=== PATIENT | male | born 1985 | race Caucasian/White ===

== ENCOUNTER 2020-10-23 10:43 | Inpatient (IN) | payer OTHER ==
[2020-10-23 12:26] LABS: INR 1.16 (0.83-1.09); PROTHROMBIN TIME (PATIENT) 14.2 SEC (9.7-13.0)
[2020-10-23 12:28] LABS: ACTIVATED PTT 25.9 SECONDS (25.2-36.5)
[2020-10-23 12:29] LABS: BASO % 1.2 % (0-2.0); EOS % 2.9 % (0-4.5); HEMATOCRIT 13.2 % (35.4-49); LYMPH % 23.6 % (8-40); MCH 22.3 pg (25.7-33.7); MCHC 31.7 g/dl (32.0-35.9); MEAN CELL VOLUME 70.5 fl (80-96); MEAN PLT VOLUME 7.8 fl (7.5-11.1); MONO % 8.2 % (3.8-10.2); NEUT % 64.1 % (42.8-82.8); PLATELET COUNT 381 10^3/uL (134-434); RBC 1.87 M/mm3 (4.00-5.60); RDW 25.4 % (11.9-15.9); WHITE BLOOD COUNT 4.5 K/mm3 (4.0-10.0)
[2020-10-23 12:34] LABS: HEMOGLOBIN 4.2 GM/dL (11.7-16.9)
[2020-10-23 12:43] LABS: CHLORIDE 108 mmol/L (98-107); SODIUM 138 mmol/L (136-145)
[2020-10-23 12:45] LABS: CALCIUM 8.6 mg/dL (8.5-10.1)
[2020-10-23 12:46] LABS: ALBUMIN 3.4 g/dl (3.4-5.0); BLOOD UREA NITROGEN 9.9 mg/dL (7-18); CO2 23 mmol/L (21-32); GLUCOSE,RANDOM 119 mg/dL (74-106)
[2020-10-23 12:49] LABS: CREATININE 1.2 mg/dL (0.55-1.3); SGOT/AST 79 U/L (15-37); SGPT/ALT 29 U/L (13-61)
[2020-10-23 12:51] LABS: BILIRUBIN,TOTAL 0.4 mg/dL (0.2-1); TOT PROT 7.2 g/dl (6.4-8.2)
[2020-10-23 12:52] LABS: ALK PHOS 82 U/L (45-117)
[2020-10-23 12:58] LABS: ANION GAP 6 MMOL/L (8-16)
[2020-10-23 13:15] LABS: ANISOCYTOSIS 3+; MACROCYTOSIS 1+; OVALOCYTE 1+; PLATELET ESTIMATE NORMAL
[2020-10-23 13:41] LABS: CALCIUM 8.5 mg/dL (8.5-10.1)
[2020-10-23 13:42] LABS: BLOOD UREA NITROGEN 9.7 mg/dL (7-18)
[2020-10-23 13:45] LABS: CREATININE 1.1 mg/dL (0.55-1.3)
[2020-10-23] MEDS ORDERED: PANTOPRAZOLE SODIUM 40 MG VIAL IVPUSH ONE (16:19)
[2020-10-23] MEDS ORDERED: SODIUM CHLORIDE 0.45% 1,000 ML IV SCH (16:30)
[2020-10-23 18:38] VITALS: BMI 29.0
[2020-10-23 21:45] LABS: HEMATOCRIT 15.3 % (35.4-49); MCH 23.8 pg (25.7-33.7); MCHC 32.5 g/dl (32.0-35.9); MEAN CELL VOLUME 73.2 fl (80-96); MEAN PLT VOLUME 6.8 fl (7.5-11.1); PLATELET COUNT 314 10^3/uL (134-434); RBC 2.09 M/mm3 (4.00-5.60); RDW 23.2 % (11.9-15.9); WHITE BLOOD COUNT 5.6 K/mm3 (4.0-10.0)
[2020-10-23] MEDS ORDERED: PANTOPRAZOLE SODIUM 40 MG VIAL IVPUSH SCH (22:00)
[2020-10-24] MEDS: PANTOPRAZOLE SODIUM 40 MG VIAL IVPUSH SCH ×2 (11:09→21:04)
[2020-10-24] MEDS ORDERED: MIDAZOLAM HCL 2 MG/2 ML SINGLE DOSE VIAL ONE (13:28)
[2020-10-24] MEDS ORDERED: IRON SUCROSE INJECTION 200 MG in SODIUM CHLORIDE 90 ML IVPB ONE (15:00)
[2020-10-24 16:58] LABS: CALCIUM 8.9 mg/dL (8.5-10.1)
[2020-10-24 16:59] LABS: BLOOD UREA NITROGEN 8.3 mg/dL (7-18)
[2020-10-24 17:03] LABS: BASO % 1.9 % (0-2.0); CREATININE 1.1 mg/dL (0.55-1.3); EOS % 3.2 % (0-4.5); HEMATOCRIT 24.7 % (35.4-49); HEMOGLOBIN 8.3 GM/dL (11.7-16.9); LYMPH % 22.4 % (8-40); MCH 25.4 pg (25.7-33.7); MCHC 33.6 g/dl (32.0-35.9); MEAN CELL VOLUME 75.8 fl (80-96); MEAN PLT VOLUME 7.7 fl (7.5-11.1); MONO % 8.1 % (3.8-10.2); NEUT % 64.4 % (42.8-82.8); PLATELET COUNT 366 10^3/uL (134-434); RBC 3.26 M/mm3 (4.00-5.60); RDW 23.6 % (11.9-15.9); WHITE BLOOD COUNT 6.8 K/mm3 (4.0-10.0)
[2020-10-24] MEDS: MELATONIN 5 MG TABLETS PO SCH (21:04)
[2020-10-25 09:35] LABS: BASO % 1.3 % (0-2.0); EOS % 5.1 % (0-4.5); HEMATOCRIT 22.5 % (35.4-49); HEMOGLOBIN 7.5 GM/dL (11.7-16.9); LYMPH % 18.2 % (8-40); MCH 25.6 pg (25.7-33.7); MCHC 33.5 g/dl (32.0-35.9); MEAN CELL VOLUME 76.5 fl (80-96); MEAN PLT VOLUME 7.7 fl (7.5-11.1); MONO % 6.8 % (3.8-10.2); NEUT % 68.6 % (42.8-82.8); PLATELET COUNT 324 10^3/uL (134-434); RBC 2.94 M/mm3 (4.00-5.60); RDW 23.6 % (11.9-15.9); RETICULOCYTES 2.68 % (0.5-1.5); WHITE BLOOD COUNT 6.4 K/mm3 (4.0-10.0)
[2020-10-25] MEDS: PANTOPRAZOLE SODIUM 40 MG VIAL IVPUSH SCH ×2 (09:59→23:09)
[2020-10-25 10:01] LABS: BLOOD UREA NITROGEN 7.2 mg/dL (7-18); CALCIUM 8.5 mg/dL (8.5-10.1)
[2020-10-25 10:04] LABS: CREATININE 1.1 mg/dL (0.55-1.3)
[2020-10-25] MEDS: MELATONIN 5 MG TABLETS PO SCH (23:09)
[2020-10-26 09:32] VITALS: BP 127/76; PULSE 70; TEMP 97.8
[2020-10-26] MEDS: PANTOPRAZOLE SODIUM 40 MG VIAL IVPUSH SCH (09:33)
[2020-10-26 11:17] LABS: HEMATOCRIT 26.9 % (35.4-49); HEMOGLOBIN 8.9 GM/dL (11.7-16.9); MCH 25.8 pg (25.7-33.7); MCHC 33.2 g/dl (32.0-35.9); MEAN CELL VOLUME 77.5 fl (80-96); MEAN PLT VOLUME 7.7 fl (7.5-11.1); PLATELET COUNT 331 10^3/uL (134-434); RBC 3.47 M/mm3 (4.00-5.60); WHITE BLOOD COUNT 6.2 K/mm3 (4.0-10.0)
== END 2020-10-26 11:40 | disposition home or self-care (01) | DRG 241 ==
LOC: JER 10:43 → JERBED 14:16 → J5S 15:50
PROVIDERS: ADMIT Family Medicine; ATTEND Family Medicine
PROC: 30233N1 Transfusion of Nonautologous Red Blood Cells into Peripheral Vein, Percutaneous Approach (ICD-10-PCS; principal; 2020-10-23)
DX: K25.4 Chronic or unspecified gastric ulcer with hemorrhage (principal); E87.5 Hyperkalemia; K25.9 Gastric ulcer, unspecified as acute or chronic, without hemorrhage or perforation; K26.9 Duodenal ulcer, unspecified as acute or chronic, without hemorrhage or perforation; Z79.1 Long term (current) use of non-steroidal anti-inflammatories (NSAID); D62 Acute posthemorrhagic anemia
CPT/HCPCS: 36415; 36430; 71045-TC-FY; 80048; 80053; 82272; 83540; 83550; 84443; 84484; 85025; 85027; 85045; 85610; 85730; 86850; 86900; 86901; 86922; 88305-TC; 93005; 93010; 99291; C9803; J1756; P9058; U0003; U0005

== ENCOUNTER 2022-11-06 10:14 | Emergency (ER) | payer BC ==
[2022-11-06 10:32] VITALS: BP 153/88; PULSE 72; RESP 18; TEMP 97.3; BMI 33.2
[2022-11-06 12:10] LABS: BASO % 0.7 % (0-2.0); EOS % 2.8 % (0-4.5); HEMATOCRIT 47.3 % (35.4-49); HEMOGLOBIN 16.3 GM/dL (11.7-16.9); LYMPH % 28.4 % (8-40); MCH 28.9 pg (25.7-33.7); MCHC 34.4 g/dl (32.0-35.9); MEAN CELL VOLUME 84.1 fl (80-96); MEAN PLT VOLUME 8.3 fl (7.5-11.1); MONO % 7.9 % (3.8-10.2); NEUT % 60.2 % (42.8-82.8); PLATELET COUNT 224 10^3/uL (134-434); RBC 5.63 M/mm3 (4.00-5.60); RDW 13.5 % (11.9-15.9); WHITE BLOOD COUNT 6.2 K/mm3 (4.0-10.0)
[2022-11-06 12:18] LABS: INR 1.08 (0.83-1.09); PROTHROMBIN TIME (PATIENT) 12.5 SEC (9.7-13.0)
[2022-11-06 12:20] LABS: ACTIVATED PTT 31.2 SECONDS (25.2-36.5)
[2022-11-06 12:28] LABS: POTASSIUM 4.3 mmol/L (3.5-5.1)
[2022-11-06 12:30] LABS: ALBUMIN 4.2 g/dl (3.4-5.0); CALCIUM 9.5 mg/dL (8.5-10.1)
[2022-11-06 12:31] LABS: BLOOD UREA NITROGEN 15.4 mg/dL (7-18)
[2022-11-06 12:35] LABS: BILIRUBIN,TOTAL 0.6 mg/dL (0.2-1); TOT PROT 7.6 g/dl (6.4-8.2)
== END 2022-11-06 12:52 | disposition home or self-care (01) ==
LOC: JER 10:14
DX: K62.5 Hemorrhage of anus and rectum (principal)
CPT/HCPCS: 36415; 80053; 82272; 83605; 83690; 85025; 85610; 85730; 99283-25